=== PATIENT | female | born 1980 | race Two or more races ===

== ENCOUNTER → 2016-06-10 | Outpatient (CLI) | payer MEDICARE, MEDICAID ==
[~2016-06-10] MED LIST: ALBUTEROL2.5 MG/31 INH; BUSPAR10 MG PO; CALCIUM500 MG PO; CELEXA20 MG PO; DEPO PROVER150 MG/ML IM; FLONASE 50 MCG/16 GM NOSE; LAMICTAL25 MG PO; NORCO 10-325 T1 EACH PO; NORCO 5-325 MG1 TAB PO; PROBIOTIC1 EAC1 PO; PROVENTIL OR V6.7 GM INH; REMERON15 MG PO; SYMBICORT 16010.2 GM INH; VENTOLIN HFA18 GM INH; VITAMIN B-121000 MCG PO; ZANAFLEX4 MG PO
== END | disposition disaster alternative care site (69) ==
LOC: LFPA 12:14
DX: Z01.818 Encounter for other preprocedural examination (principal)

== ENCOUNTER → 2016-06-27 | Day surgery (SDC) | payer MEDICARE, MEDICAID ==
[~2016-06-27] VITALS: Ht 157.5 cm; Wt 92.8 kg
--- NOTE | ~2016-06-27 | OR ---
PATIENT'S NAME: STEPHANIE MONTES [facility] AGE: 36 Y [address] ROOM: [place] [id number] LOCATION: [facility] [place] ADMIT DATE: 06/27/2016 OR/Procedure Report DISCHARGE DATE: FAMILY PHYSICIAN: Lili Arndt MD ATTENDING PHYSICIAN: Diaz Tavarez V SURGEON: Diaz Tavarez MD INDEX CLERK: DATE OF PROCEDURE: 06/27/2016 PREOPERATIVE DIAGNOSIS: Right true vocal cord polyp. POSTOPERATIVE DIAGNOSIS: Right true vocal cord polyp. PROCEDURE PERFORMED: CO2 laser microlaryngoscopy with biopsy. ANESTHESIA: General endotracheal anesthesia. ESTIMATED BLOOD LOSS: Minimal. COMPLICATIONS: None. FINDINGS: The patient had a right hypervascular vocal cord lesion extending from the anterior commissure to the arytenoid. DESCRIPTION OF PROCEDURE: The patient was taken to the operating room and laid in the supine position with general endotracheal anesthesia with a 5.0 laser tube. The table was rotated 90 degrees and a right shoulder roll placed. Head was placed in a sniffing position. Laryngoscope was inserted within the oropharynx and directed down the right lateral pharyngeal wall. The base of the tongue was visualized and noted to be normal. Epiglottis was elevated anteriorly with visualization of the vocal cords. The patient had a hypervascular lesion occupying the right true vocal cord extending from the anterior commissure posteriorly to the arytenoid. The laryngoscope was suspended with frame. Microscope was brought into place. Under direct vision, the vocal cord was visualized. Epinephrine-soaked pledget was then placed in the immediate subglottis. The patient was then prepped and draped in the usual sterile fashion with wet towels. The polypoid lesion occupying the right true vocal cord was then grasped with upbiting forceps. It was then dissected free from the right true vocal cord with microdissection scissors, leaving the vocal cord intact. The residual polypoid tissue was then desiccated with CO2 laser. The patient tolerated the procedure well. The pledget was removed. Hemostasis was adequate. The laryngoscope was removed. The patient was aroused, extubated, and discharged from the operating room to the recovery room in satisfactory condition. PATIENT'S NAME: STEPHANIE MONTES [facility] AGE: 36 Y [address] ROOM: [place] [address] LOCATION: [facility] [place] ADMIT DATE: 06/27/2016 OR/Procedure Report DISCHARGE DATE: FAMILY PHYSICIAN: Lili Arndt MD ATTENDING PHYSICIAN: Diaz Tavarez V DIAZ TAVAREZ MD TVC/modl /[id number] d: 06/27/16 1803 t: 07/04/16 0713, OPERATIVE SUMMARY
== END | disposition disaster alternative care site (69) ==
LOC: GPOC 06-20 13:00 → GSDC 05:45 → GPOC 07:00 → GSDC 13:00 → GPOC 13:00
PROC: 0CBT8ZX Excision of Right Vocal Cord, Via Natural or Artificial Opening Endoscopic, Diagnostic (ICD-10-PCS; principal; 2016-06-27)
DX: J38.3 Other diseases of vocal cords (principal); J45.909 Unspecified asthma, uncomplicated; K21.9 Gastro-esophageal reflux disease without esophagitis; J30.89 Other allergic rhinitis; M48.02 Spinal stenosis, cervical region; F17.210 Nicotine dependence, cigarettes, uncomplicated; E66.9 Obesity, unspecified; Z68.30 Body mass index [BMI] 30.0-30.9, adult; Z88.0 Allergy status to penicillin; Z98.890 Other specified postprocedural states
CPT/HCPCS: J0171; J1100; J2001; J2250; J2405; J3010; J7030; Q9968

== ENCOUNTER 2016-09-26 18:12 | Emergency (ER) | payer MEDICARE, MEDICAID ==
--- NOTE | ~2016-09-26 | ER ---
PATIENT'S NAME: STEPHANIE MONTES [facility] AGE: 36 Y [address] ROOM: [place] [address] LOCATION: ED ADMIT DATE: 09/26/2016 ER/Outpatient Report DISCHARGE DATE: 09/26/2016 FAMILY PHYSICIAN: Lili Arndt MD ATTENDING PHYSICIAN: Beny Madison Time of Arrival: 1814 hours. Time of Evaluation: 1826 hours. CHIEF COMPLAINT: Hives. HISTORY OF PRESENT ILLNESS: The patient states she woke up at 10:00 this morning not feeling well. She went back to bed, and then when she woke up later in the day, she had red rash of her left upper arm and right lower leg. She did take some Benadryl. Around noonish, she felt as though she was a little short of breath, felt as though her face was a little swollen, did not have any spots on her face. The hives that she had on the upper arm and lower leg were itching. She repeated the Benadryl at 3:00, symptoms were not improving, so she presented to the ER. She has not felt febrile, has not had a headache, denies having any chest pain, has not had a cough. ALLERGIES AND MEDICATIONS: Listed on the chart and reviewed by me. PAST MEDICAL HISTORY: Vocal cord polyps and kidney stone. PAST SURGERIES: Vocal cord polyp removal in June of 2016, kidney stone and stents. SOCIAL HISTORY: Denies use of tobacco, states she quit 5 months ago. Denies use of drugs or alcohol. REVIEW OF SYSTEMS: All negative other than those mentioned in the HPI. PHYSICAL EXAMINATION: VITAL SIGNS: She weighed 97.8 kg. Blood pressure was 127/103, pulse of 102, respirations 20, temperature of 98.7, and O2 saturation was 99% on room air. GENERAL: She is awake, alert, and oriented x4. SKIN: Terril, warm, and dry. RESPIRATIONS: Even and nonlabored. Oropharynx is clear posteriorly. PATIENT'S NAME: STEPHANIE MONTES [facility] AGE: 36 Y [address] ROOM: [place] [address] LOCATION: ED ADMIT DATE: 09/26/2016 ER/Outpatient Report DISCHARGE DATE: 09/26/2016 FAMILY PHYSICIAN: Lili Arndt MD ATTENDING PHYSICIAN: Beny Madison NECK: Supple. No lymphadenopathy. LUNGS: Lung sounds are clear throughout. HEART: Regular rate and rhythm. EXTREMITIES: The patient has hive on the left upper arm and the right lower leg. EMERGENCY DEPARTMENT COURSE: She was given Solu-Medrol 125 mg IM and monitored. She felt as though the itching and discomfort had improved. IMPRESSION: Hives. PLAN: Home, rest. Continue Benadryl every 6 hours as needed. She can do hydrocortisone cream to the areas that itch. If symptoms persist or worsen, she should follow up with Dr. Lili Arndt, her primary provider. She verbalized understanding. DANIEL SAWYER APRN FOR MD YOVANI JI/modl /[id number] d: 09/27/16 0122 t: 09/29/16 1208, OUTPATIENT REPORT
== END 2016-09-26 18:45 | disposition disaster alternative care site (69) ==
LOC: GMED 18:12
DX: L50.9 Urticaria, unspecified (principal); Z88.0 Allergy status to penicillin; Z88.1 Allergy status to other antibiotic agents; Z88.8 Allergy status to other drugs, medicaments and biological substances; Z79.899 Other long term (current) drug therapy; Z87.442 Personal history of urinary calculi; Z87.891 Personal history of nicotine dependence; Z98.890 Other specified postprocedural states; Z95.828 Presence of other vascular implants and grafts; Z91.040 Latex allergy status; Z91.011 Allergy to milk products
CPT/HCPCS: J2930